=== PATIENT | male | born 1950 | race Caucasian/White ===

== ENCOUNTER 2017-08-04 05:18 | Inpatient (IN) | payer OTHER, BC ==
--- NOTE | 2017-08-03 21:59 | GHP ---
[f rep st] PREOP HISTORY AND PHYSICAL DATE OF ADMISSION: 08/04/2017 DATE OF SCHEDULED SURGERY: 08/04/2017 PROBLEM: Painful right hip [place] hip resurfacing arthroplasty. HISTORY OF PRESENT ILLNESS: The patient is a 67-year-old man. He lives in [place], [place]. He i s 6-1/2 years following his right BHR. He does a lot of exercise, walking and hiking. In the past y ear and a half he has 5000 miles of walking and hiking on his Fitbit. Since March of 2017, he young s noticed grinding and a popping sensation in the hip when he does his morning exercises. This is re producible when he loads the hip, maximally flexes it, and internally rotates it. He gets an ache in the hip when he uses an elliptical guide dog trainer longer than 20 minutes. He occasionally uses ibuprofen. He does not have pain when he rides his bike. He gets a clicking sensation when he does squats. No rmally he works out at the [employer] 4-5 days per week. PAST MEDICAL HISTORY: He is treated for hypothyroidism and anxiety. No history of heart disease, st ents, DVT, hepatitis, sleep apnea, or bleeding problems. CURRENT MEDICATIONS: Thyroid 150 mcg per day. Alprazolam for anxiety. DRUG ALLERGIES: None. METAL ALLERGY: None. LATEX ALLERGY: None. SOCIAL HISTORY: He is . He discontinued smoking 11 years ago. He does not drink alcohol. Kristofer sofia is retired. FAMILY HISTORY: Negative. PHYSICAL EXAMINATION: GENERAL: Height 5 feet 8 inches. Weight 178 pounds. BMI 27.1. EYES: The c onjunctivae and sclerae are clear. Pupils are round and reactive. MOUTH: Good oral hygiene. No lo ose teeth. CHEST: Clear. HEART: Regular rhythm. No murmurs. EXTREMITIES: Pertinent findings ar e limited to his right hip. He has full hip extension and 120 degrees of flexion. External rotation 60 degrees. Internal rotation 30 degrees. Abduction 60 degrees. No palpable masses around the hip joint. He is not tender over the greater trochanter. With active and passive range of motion in a supine position, I cannot elicit any grinding or popping. DIAGNOSTIC DATA: His serum chromium on May 28, 2017, was 6.8. His cobalt level was 13. 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 He also has some proximal tendinosis in t he right hamstring. The left side shows gluteus medius tendinopathy with a partial tear. IMPRESSION ON ADMISSION: 6-1/2 years status post right Sukhwinder hip resurfacing. He is now having crepitation and pain in the hip. He has elevated cobalt and chromium levels. His MRI is showing ev idence of soft tissue inflammation and possible damage to the gluteus medius. PLAN: He will undergo a revision of the BHR to a total hip replacement. I may remove the acetabular component and convert it to a formal total hip arthroplasty. If he has significant gluteus medius d amage and instability might be a postoperative problem, I may use a dual mobility design prosthesis. The surgery has been explained to him including the risks, complications, expectations, and recovery time. I have advised him that he is at an increased risk for postoperative instability. I have disc ussed with him the risk of infection and sciatic nerve injury. He also realizes there is a possibili ty that he could require further revision surgery in the future. He wants to go to [facility] for 5-7 days following surgery. He has taken his to [place]. He is in [place] by himself and does not have any capacity to care for himself postoperatively. All his questions have been answered, and he consents to surgery. Copy requested to: MD Ayse Barahona [place] /[id number]/CHARLENEL
[2017-08-04] MEDS ORDERED: ACETAMINOPHEN 325 MG TAB PO ONE (05:38)
[2017-08-04] MEDS ORDERED: DEXAMETHASONE 4 MG/ML VIAL IVP ONE (05:38)
[2017-08-04] MEDS ORDERED: FAMOTIDINE 20 MG TAB PO ONE (05:38)
[2017-08-04] MEDS ORDERED: TRANEXAMIC ACID IV ONE (05:38)
[2017-08-04] MEDS ORDERED: GABAPENTIN 300 MG CAP PO ONE (05:38)
[2017-08-04] MEDS ORDERED: NS IV ONE (05:38)
[2017-08-04] MEDS ORDERED: ceFAZolin 2 GM/SWFI 2 GM/20 ML SYR IVP ONE (05:38)
[2017-08-04] MEDS ORDERED: LR 1,000 ML IV ONE (05:39)
[2017-08-04] MEDS ORDERED: LIDOCAINE 1% 2 ML INJ ID PRN (05:39)
[2017-08-04] MEDS ORDERED: MIDAZOLAM 2 MG/2 ML VIAL IVP ONE (06:53)
--- NOTE | 2017-08-04 06:54 | PDANEPAE ---
ANE History of Present Illness here for revision RITA ANE Past Medical History - Cardiovascular History Hx Hypertension: No Hx Arrhythmias: No Hx Chest Pain: No Hx Coronary Artery / Peripheral Vascular Disease: No Hx CHF / Valvular Disease: No Hx Palpitations: No - Pulmonary History Hx COPD: No Hx Asthma/Reactive Airway Disease: No Hx Recent Upper Respiratory Infection: No Hx Oxygen in Use at Home: No Hx Sleep Apnea: No Sleep Apnea Screening Result - Last Documented: Positive - Neurologic History Hx Cerebrovascular Accident: No Hx Seizures: No Hx Dementia: No - Endocrine History Hx Diabetes: No - Renal History Hx Renal Disorders: No - Liver History Hx Hepatic Disorders: No - Neurological & Psychiatric Hx Hx Neurological and Psychiatric Disorders: Yes Neurological / Psychiatric History Comment: anxiety - Cancer History Hx Cancer: No - Congenital Disorder History Hx Congenital Disorders: No - GI History Hx Gastrointestinal Disorders: Yes Gastrointestinal History Comment: reflux,gerd - Other Health History Other Health History: none - Chronic Pain History Chronic Pain: No - Surgical History Prior Surgeries: R hip replacement. ANE Review of Systems Review of systems is: negative Review of Systems: - Exercise capacity Exercise capacity: >=4 METS METS (RN): 5 METS ANE Patient History - Allergies Allergies/Adverse Reactions: No Known Allergies Allergy (Verified 06/30/17 17:28) - Home Medications Home medications: home medication list seen and reviewed, over the counter medications & supplements Home Medications: ALPRAZolam [Xanax 0.5 MG (*)] 0.5 mg PO BID 06/30/17 [Last Taken 08/03/17 20:00] Aspirin EC [Aspirin EC 81 mg (*)] 81 mg PO DAILY 06/30/17 [Last Taken 07/25/17] Ibuprofen [Motrin (*)] 200 mg PO DAILY PRN 06/30/17 [Last Taken 07/25/17] Ibuprofen [Motrin (*)] 200 mg PO Q4 06/30/17 [Last Taken 07/25/17] Levothyroxine [Synthroid 150 mcg (*)] 150 mcg PO DAILY06 06/30/17 [Last Taken 04:00] - NPO status NPO Status: no food or drink >8 hours NPO Since - Liquids (Date): 08/03/17 NPO Since - Liquids (Time): 19:00 NPO Since - Solids (Date): 01/15/18 NPO Since - Solids (Time): 19:00 - Anes Hx Anes Hx: no prior problems - Smoking Hx Smoking Status: Former smoker - Family Anes Hx Family Hx Anesthesia Complications: none ANE Labs/Vital Signs - Vital Signs Blood Pressure: 138/86 Heart Rate: 67 Respiratory Rate: 16 O2 Sat (%): 99 Height: 172.72 cm Weight: 65.771 kg ANE Physical Exam - Airway Neck exam: FROM Mallampati Score: Class 1 - Pulmonary Pulmonary: no respiratory distress - Cardiovascular Cardiovascular: regular rate and rhythym - ASA Status ASA Status: II ANE Anesthesia Plan Anesthesia Plan: spinal
[2017-08-04] MEDS: POVIDONE-IODINE 20 ML in SODIUM CL IRRIG SOLUTION 500 ML IRR ONE ×2 (07:00→08:08)
--- NOTE | 2017-08-04 07:00 | PDHPUP ---
History & Physical Update H&P update statement: This history and physical update is based on an assessment of the patient which was completed after admission or registration (within 24 hours), but prior to the surgery/procedure. H&P update: H&P reviewed & patient examined, no change in patient's condition since H&P completed
[2017-08-04] MEDS ORDERED: fentaNYL 100 MCG/2 ML INJ ONE ×2 (07:05→12:20)
[2017-08-04] MEDS ORDERED: PROPOFOL/EMULSION 500 MG/50 ML BOTTLE IV ONE ×2 (07:05→08:12)
[2017-08-04] MEDS ORDERED: ceFAZolin 1 GM/5 ML SYR ONE (07:06)
[2017-08-04] MEDS ORDERED: MIDAZOLAM 2 MG/2 ML VIAL ONE (07:07)
[2017-08-04] MEDS: ceFAZolin 1 GM/5 ML SYR ONE ×2 (07:15→08:08)
[2017-08-04] MEDS: ROPIVACAINE 0.2% 80 MG, EPINEPHrine 0.2 MG, KETOROLAC TROMETHAMINE 30 MG in SYRINGE 0 ML IU ONE ×2 (07:45→08:09)
[2017-08-04] MEDS ORDERED: ALBUTEROL 3 ML DEYVIAL IH PRN (07:48)
[2017-08-04] MEDS ORDERED: DEXAMETHASONE 4 MG/ML VIAL IVP PRN (07:48)
[2017-08-04] MEDS ORDERED: fentaNYL 100 MCG/2 ML INJ IVP PRN (07:48)
[2017-08-04] MEDS ORDERED: ONDANSETRON 4 MG/2 ML VIAL IVP PRN ×2 (07:48→09:39)
[2017-08-04] MEDS ORDERED: HYDROmorphONE/DILAUDID 1 MG/ML INJ IVP PRN (07:48)
[2017-08-04] MEDS ORDERED: PHENYLEPHRINE HCL 100 MCG/ML SYR IVP PRN (07:48)
[2017-08-04] MEDS ORDERED: NALOXONE HCL 0.4 MG/ML INJ IVP PRN (07:48)
--- NOTE | 2017-08-04 09:34 | POSTOPPROG ---
Post Op Note Date of Operation: 08/04/17 Surgeon: Hal Mejia Pre Press Manager: Darlene Anesthesiologist: Dr. Hill Carbajal Post-op Diagnosis: Failed right Sukhwinder hip resurfacing arthroplasty. Procedure: Right total hip arthroplasty. Inf/Abcess present in the surg proc area at time of surgery?: No EBL: [id number]
[2017-08-04] MEDS ORDERED: TEMAZEPAM 15 MG CAP PO PRN (09:39)
[2017-08-04] MEDS ORDERED: LACTULOSE 20 GM/30 ML UDCUP PO PRN (09:39)
[2017-08-04] MEDS ORDERED: DIPHENOXYLATE/ATROPINE LOMOTIL 1 TAB PO PRN (09:39)
[2017-08-04] MEDS ORDERED: PROMETHAZINE HCL 25 MG SUPPR PR PRN (09:39)
[2017-08-04] MEDS ORDERED: diphenhydrAMINE 25 MG CAP PO PRN (09:39)
[2017-08-04] MEDS ORDERED: PROMETHAZINE HCL 25 MG/ML INJ IVP PRN (09:39)
[2017-08-04] MEDS ORDERED: MAGNESIUM HYDROXIDE 30 ML UDCUP PO PRN (09:39)
[2017-08-04] MEDS ORDERED: NS 500 ML IV PRN (09:39)
[2017-08-04] MEDS ORDERED: BISACODYL 10 MG SUPP PR PRN (09:39)
[2017-08-04] MEDS ORDERED: CYCLOBENZAPRINE 10 MG TAB PO PRN (09:39)
[2017-08-04] MEDS ORDERED: ONDANSETRON DISINTEGRATING 4 MG TAB PO PRN (09:39)
[2017-08-04] MEDS ORDERED: METOCLOPRAMIDE 10 MG/2 ML VIAL IVP PRN (09:39)
[2017-08-04] MEDS ORDERED: traMADol 50 MG TAB PO PRN (09:39)
[2017-08-04] MEDS ORDERED: LR 1,000 ML IV SCH (10:00)
--- NOTE | 2017-08-04 10:19 | GOP ---
[f rep st] OPERATIVE REPORT DATE OF OPERATION: 08/04/2017 SURGEON: Hal Mejia MD LANGUAGE PATH: Aaron Devi, PAC and Sean Erickson CFA ANESTHESIA: Combination of Marcaine, spinal, and IV sedation. ANESTHESIOLOGIST: Hill Carbajal MD PREOPERATIVE DIAGNOSIS: Failed right [place] hip resurfacing arthroplasty with pain, crepitation and elevated metal ion levels. POSTOPERATIVE DIAGNOSIS: Failed right [place] hip resurfacing with pain, crepitation and elevated metal ion levels. PROCEDURE PERFORMED: Conversion of right Sukhwinder hip resurfacing arthroplasty to a right total hi p arthroplasty. FINDINGS: DESCRIPTION OF PROCEDURE: The patient was given 2 g of IV Ancef preoperatively within 60 minutes of surgery. He also received IV tranexamic acid at a dose of 20 mg/kg. He was placed on the operating room table and given spinal anesthesia with Marcaine by Dr. Hill Carbajal. He was then placed supine and given IV sedation. A Wells catheter was not used. He wore a VIDYA stocking and SCD on the nonoper ative leg. He was rolled to the left lateral decubitus position. The position was secured with the pegboard table attachment. An axillary roll was used, and all pressure points were carefully padded. I was careful to lock his pelvis in a rigid vertical position. His perineum was isolated with plas tic adhesive drapes. The right hip and right lower extremity were prepped with ChloraPrep. They wer e draped free using sterile sheets, stockinette, and Ioban plastic drape. The World Health Organization time-out was performed to verify the correct surgical side and site and the correct patient identity. The [place] time-out was also performed. I made approximately 6 inch oblique incision on the posterior lateral aspect of the hip. I went thro ugh his pre-existing surgical incision. Subcutaneous tissues were sharply divided, and hemostasis wa s obtained using electrocautery. He had a thin layer of subcutaneous fat. His fascia silas was ident ified and split along the axis of its fibers. I then curved posteriorly and proximally, and split th e fascia of the gluteus melanie and bluntly split the muscle fibers in line with their orientation. The Charnley self-retaining retractor was inserted. He had a collection of about 30 or 40 cc of dark yellow fluid sitting posterior to the greater trochanter. The posterior capsule and external rotato r repair had failed. The FiberWire sutures were still present and they were removed. I was able to look directly into the posterior aspect of the hip joint. His sciatic nerve was embedded in scar tis aga posteriorly and I made no effort to expose that. I was careful to stay away from that area liseth g the remainder of the procedure. I took a culture of the hip joint fluid. He had a mild amount of brownish-herrera staining of the synovium. This was removed with a rongeur. His gluteus medius looked healthy and intact. I inserted an 8-inch Steinmann pin vertically into the ilium, superior to the acetabulum. An 8-inch drill bit was inserted vertically into the greater trochanter and parallel to the first pin. The dist ance between the 2 was measured for leg length reference. The hip was dislocated posteriorly. I ost eotomized at the femoral neck at the appropriate level and inclination. The bone of the femoral neck was healthy. I started my osteotomy with the oscillating saw and finished it with a reciprocating s aw. The femoral head with the BHR head component, were removed. I prepared the femur first. This allowed me to director wholesale the amount of natural femoral neck anteversion. This, in turn, allowed me to later determine the correct amount of cup anteversion. He only had ab out 8 or 10 degrees of natural femoral neck anteversion. The canal was opened laterally with a box c hisel. I reamed and broached sequentially up to a size 15. I used a size 15 synergy broach as a tri al stem. I was careful to lateralize adequately. Appropriate retractors were inserted to expose the acetabulum. The acetabulum was very solid. I exc ised scar tissue and synovium from around the perimeter of the acetabular component so that I could s ee the bone prosthetic interface 360 degrees. I then used the Gordon explant device with the curved osteotomes to carefully work around the acetabular component trying to break the claudio between the por ous coating and the acetabular bone. I started with the short blades and gradually increased the brii gth of the blades. Once I had this freed up circumferentially, I used a bone tamp superiorly to tap the acetabular component out. I had 1 area inferiorly and anteriorly and 1 area superior and lateral ly were I lost a little of the acetabular bone still attached to the component. The medial wall was intact and there was good bone in the medial aspect of his acetabulum. The bone, which was adherent to the back of the femoral component, was removed with a rongeur. I arcadio med the acetabulum sequentially up to 59 mm. I took the morselized bone from the back of the acetabu lar component and packed it into the shallow defects in the acetabulum. I selected a 60 mm 3 hole [employer] and [employer] R3 hemispherical shell. This was tapped securely into place in the proper degree of i nclination anteversion. It was a surprisingly tight fit. I inserted 25 mm, a 30 mm and a 35 mm scre ws into the acetabulum for supplemental fixation. Overall, I felt the fixation of the cup was good. I inserted a screw-in metal dome hole plug. I then performed a series of trial reductions to determine length and stability. I concluded that th e size 15 stem with a 0 neck length, a high offset, and a 36 mm head with a 20 degree lipped liner ga ve me the proper combination of appropriate length and good anterior and posterior stability. He was 3 or 4 mm short preoperatively, and I was intentionally lengthening him. The 20 degree lipped Lincoln and Nephew R3 highly cross-linked polyethylene liner was inserted and oh ed securely into place. I chose a Lincoln and Nephew Synergy stem in size 15 with high offset. This w as inserted press-fit and was very tight. I did 1 final trial reduction and confirmed that the 0 nec k length with a 36 mm head was the proper combination. I selected the Lincoln and Nephew Oxinium head with an outside diameter of 36 mm and a neck length of 0 mm. This was tapped securely onto the clean trunnion. The acetabulum was irrigated and cleaned, and the hip was reduced 1 final time. He had e xcellent anterior and posterior stability and a few millimeters of lengthening. Then, 40 mL of the joint anesthetic cocktail were injected into the capsule, the deep musculature, an d the subcutaneous tissues around the skin edges. The joint was thoroughly irrigated 1 final time wi th a dilute Betadine solution. There were no remaining external rotators or posterior capsule to rep air. The fascia silas was closed first with 2 [id number] #2 FiberWire sutures followed by a runn ing #2 barbed Ethicon Stratafix PDO suture. The subcutaneous tissues were closed with a running 0 ba rbed Ethicon Stratafix Monoderm suture. The skin was closed with a running 3-0 barbed Ethicon Strata fix Monoderm subcuticular suture. The skin edges were reapproximated and sealed with Dermabond glue. The wound was covered with a large piece of Mepilex waterproof dressing. A long-leg VIDYA stocking and SCD were applied to his right lower extremity. He wore a stocking and SC D on the opposite leg during the procedure. An abduction pillow was placed between his knees. He wa s awakened from anesthesia, rolled to the supine position on his [facility]. He was taken to [facility] in satisfactory condition. There were no recognized intraoperative complications. The estimated blood loss was about 400 mL. I used a Lincoln and Nephew R3 hemispherical cluster hole acetabular shell with an outside diameter of 60 mm. The liner was a Lincoln and Nephew R3 20 degree lipped highly cross-linked liner with an inside diameter of 36 mm. The femoral component was a press-fit Lincoln and Nephew high offset Synergy stem in size 15. The femoral head was Lincoln and Nephew Oxinium head with a 0 neck length and a 36 mm outs johanna diameter. Art Devi and Sean Erickson acted as surgical assistants. Their assistance was a medical necess ity for safe completion of the procedure. Copy requested to: Natalia Rachel /[id number]/MODL
--- NOTE | 2017-08-04 11:39 | POSTANESTH ---
Post Anesthetic Evaluation Cardiovascular Status: Normal, Stable Respiratory Status: Normal, Stable Level of Consciousness/Mental Status: Can Participate in Eval Pain Control: Adequate, Prn Tx Ordered Nausea/Vomiting Control: Adequate, Prn Tx Ordered Complications Possibly Related to Anesthesia: None Noted
[2017-08-04] MEDS ORDERED: traMADol 50 MG TAB ONE (12:20)
[2017-08-04] MEDS: ceFAZolin 2 GM/DEXTROSE 100 ML IV SCH ×2 (14:37→23:17)
[2017-08-04] MEDS: oxyCODONE IR 5 MG TAB PO PRN ×3 (14:37→21:36)
[2017-08-04] MEDS: ACETAMINOPHEN 325 MG TAB PO SCH ×3 (14:38→23:16)
[2017-08-04] MEDS: KETOROLAC 30 MG/1 ML SDV IVP PRN (14:38)
[2017-08-04] MEDS: TRANEXAMIC ACID 650 MG TAB PO SCH ×2 (14:39→23:16)
[2017-08-04] MEDS: POLYETHYLENE GLYCOL 3350 17 GM PKT PO PRN (14:40)
[2017-08-04] MEDS: SENNOSIDES/DOCUSATE SODIUM TAB PO SCH (21:35)
[2017-08-04] MEDS: ALPRAZolam 0.5 MG TAB PO SCH (21:36)
[2017-08-04] MEDS: FAMOTIDINE 20 MG TAB PO SCH (21:36)
[2017-08-04] MEDS: ASPIRIN 325 MG TAB PO SCH (21:36)
[2017-08-04 23:20] VITALS: O2SAT 97
[2017-08-05] MEDS: oxyCODONE IR 5 MG TAB PO PRN ×2 (04:05→15:52)
[2017-08-05] MEDS: ACETAMINOPHEN 325 MG TAB PO SCH ×3 (05:15→15:54)
[2017-08-05] MEDS ORDERED: LEVOTHYROXINE 150 MCG TAB PO SCH (06:00)
[2017-08-05 07:31] VITALS: RESP 16; TEMP 98.4
[2017-08-05] MEDS: SENNOSIDES/DOCUSATE SODIUM TAB PO SCH ×2 (08:37→15:58)
[2017-08-05] MEDS: POLYETHYLENE GLYCOL 3350 17 GM PKT PO PRN (08:37)
[2017-08-05] MEDS: TRANEXAMIC ACID 650 MG TAB PO SCH (08:38)
[2017-08-05] MEDS: FAMOTIDINE 20 MG TAB PO SCH ×2 (08:38→15:57)
[2017-08-05] MEDS: ASPIRIN 325 MG TAB PO SCH (08:38)
[2017-08-05] MEDS: KETOROLAC 30 MG/1 ML SDV IVP PRN (08:39)
[2017-08-05] MEDS: ALPRAZolam 0.5 MG TAB PO SCH ×2 (08:44→13:47)
--- NOTE | 2017-08-05 10:12 | SOAPPROG ---
SOAP Progress Note Assessment/Plan: Assessment: Afebrile. Mild pain. Has been walking in argu[place]. Sciatic nerve intact. He required urinary catheterization 1 time. Postop H&H is good. Postop films look excellent. Plan: Continue physical therapy today. Discharged to [facility] later today. 08/05/17 10:10 Objective: Vital Signs Temp Pulse Resp BP Pulse Ox 36.9 C 77 16 101/75 97 08/05/17 07:31 08/05/17 07:31 08/05/17 07:31 08/05/17 07:31 08/05/17 07:31 Microbiology 08/04/17 07:51 Gram Stain - Final Hip - Eswab Laboratory Results 08/05/17 04:27 08/04/17 08/05/17 08/06/17 05:59 05:59 05:59 Intake Total 2600 Output Total 1100 125 Balance 1500 -125 ICD10 Worksheet Patient Problems: Problems Problem Status Onset Failed total hip arthroplasty Acute
--- NOTE | 2017-08-05 10:13 | PDIAF ---
- Diagnosis Diagnosis: failed R hip resurfacing with conversion to RITA Code Status: Full Code - Medication Management Discharge Medications: Medications to Continue on Transfer ALPRAZolam [Xanax 0.5 MG (*)] 0.5 mg PO BID 06/30/17 [Last Taken 08/03/17 20:00] Levothyroxine [Synthroid 150 mcg (*)] 150 mcg PO DAILY06 06/30/17 [Last Taken 04:00] Acetaminophen [Tylenol 325mg (*)] 650 mg PO Q6HRS tab 08/05/17 [Last Taken Unknown] Aspirin [Aspirin 325 mg (*)] 325 mg PO DAILY tab 08/05/17 [Last Taken Unknown] Ondansetron Odt [Zofran Odt 4 mg (*)] 4 mg PO Q4HRS PRN tab 08/05/17 [Last Taken Unknown] Sennosides/Docusate Sodium [Senokot-S] 1 - 2 tab PO BID tab 08/05/17 [Last Taken Unknown] celeCOXIB [Celebrex (*)] 200 mg PO DAILY cap 08/05/17 [Last Taken Unknown] oxyCODONE IR [Oxycodone Ir (*)] 5 - 10 mg PO Q3HRS PRN tab 08/05/17 [Last Taken Unknown] traMADol [Ultram 50 mg (*)] 50 mg PO Q6HRS PRN tab 08/05/17 [Last Taken Unknown ] Discharge Medications: Refer to the Discharge Home Medication list for PRN reason. - Orders Services needed: Physical Therapy Diet Recommendation: no restrictions on diet Diet Texture: Regular Texture Diet Wells: Not applicable Evans Stockings Discontinue Date: 1 week Wound Care Instructions: keep clean and dry. You may shower. Activity/Weight Bearing Restrictions: partial weight bearing on R side x 3 weeks. - Follow Up Care Current Providers and Referrals: CHARLENE FITZGERALD [Other] Hal Mejia MD [Medical Doctor] - 08/13/17 9:00 am
--- NOTE | 2017-08-05 10:31 | GDS ---
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 DISCHARGE DIAGNOSIS: Right hip failed [place] hip resurfacing arthroplasty. PROCEDURE: 08/04/2017, conversion of right BHR to a right total hip arthroplasty. POSTOPERATIVE COMPLICATIONS: None. CONDITION ON DISCHARGE: Improved. HOSPITAL COURSE: The patient was admitted to the hospital the morning of surgery. The same day, und er a combination of Marcaine, spinal, and IV sedation, he underwent revision of his failed BHR to a t otal hip arthroplasty. Postoperatively, he was treated with multimodal DVT prophylaxis, including as pirin. On the first postoperative day, his hemoglobin and hematocrit were 10.6 and 30.8. He was see n by Physical Therapy and made excellent progress with ambulation and stairs. DISPOSITION: The patient is discharged to [facility]. I will see him back in the office on Jul. Remain on aspirin 325 mg p.o. daily for 21 days. He has prescriptions for oxycodone and tramadol for pain control. He will be 50% weightbearing on the right for the first 3 weeks. If there are any problems, he is to call me at the office. Copy requested to: Dr. Eleazar Montalvo, [place] /[id number]/MODL
[2017-08-05 12:34] VITALS: BP 119/73; PULSE 59
--- NOTE | 2017-08-05 14:10 | ASMTCMCOM ---
CM Note CM Note Notes: Pt medically stable for d/c to [facility], PB set up wc van for 1500. Orders sent in [email or web address]. Date Signed: 08/05/2017 02:10 PM Electronically Signed By:QASIM Salter
--- NOTE | 2017-08-05 16:50 | ASDISCHSUM ---
Discharge Information Plan Status:SNF Medically Cleared to Leave: Discharge Date:08/05/2017 04:14 PM CM D/C Disposition:[facility] Facility ADT D/C Disposition:Senior Care Facility Projected Discharge Date:08/05/2017 11:00 AM Transportation at D/C:Wheelchair Van Discharge Delay Reason: Follow-Up Date:08/05/2017 11:00 AM Discharge Slot: Final Diagnosis: Placement Information Referral Type:*Long Term/SNF Referral ID:[id number] Provider Name:Kristen Maravilla Address 1:[address] Phone Number: Address 2: Fax Number: City:[place] Selection Factors: State:[place] Patient Contact Information Contact Name:EUGENIO Relationship: Address:[address] City:[facility] Phone: State/Zip Code:[place] [address] Email: Financial Information Financial Class: Primary Plan Desc:MEDICARE INPATIENT Primary Plan Number:[id number] Secondary Plan Desc:[facility] Secondary Plan Number:[id number] Assessment Information CM Client Professional Assessment [facility] Did you go to joint Answers: Yes class? CM Note CM Note Notes: Zachery is traveling from [place] for the surgery. His does not drive, so he is hoping to go to a SNF after surgery. Dr. Casey office recommended [facility]. I have send Zachery an email with 3 SNFs that are [facility] accredited. He is going to review the information and let me know his decision. Zachery decided that he would like to go to [facility]. He thinks their rehab program is a good fit for him. Date Signed: 07/30/2017 10:19 AM Electronically Signed By:Kalie Fitzpatrick [facility] Progress Note CM Note CM Note Notes: Pt medically stable for d/c to [facility], PB set up wc van for 1500. Orders sent in [employer]. Date Signed: 08/05/2017 02:10 PM Electronically Signed By:QASIM Salter Intervention Information
== END 2017-08-05 16:14 | DRG 468 ==
LOC: F3N 05:18
PROVIDERS: ADMIT Orthopaedic Surgery; ATTEND Orthopaedic Surgery
DX: T84.84XA Pain due to internal orthopedic prosthetic devices, implants and grafts, initial encounter (principal); T84.090A Other mechanical complication of internal right hip prosthesis, initial encounter; F41.9 Anxiety disorder, unspecified; E03.9 Hypothyroidism, unspecified
CPT/HCPCS: 97116-GP; 97161-GP; 97165-GO; 97530-GP; C1713; G8978-GP-CJ; G8979-GP-CI; G8980-GP-CI; G8987-GO-CK; G8988-GO-CI; J0171; J0690; J1100; J1885; J2250; J2370; J2704; J2795; J3010